=== PATIENT | male | born 1955 | race Caucasian/White ===

== ENCOUNTER → 2017-02-26 | Outpatient (CLI) | payer OTHER ==
--- NOTE | 2017-02-26 10:53 | REP ---
Chest x-ray: Two views. History: Hypertension. Comparison chest x-ray January 24, 2014. Findings: The lungs remain well inflated. There are calcified granulomatous changes in the left lower lobe and left hilus unchanged from prior study. Old healed rib fractures are noted on the right. Lung castelan are otherwise clear. Pleural angles are sharp. Cardiomediastinal silhouette is unremarkable. No other bony abnormality is seen. Impression: No active disease. Signed by Buddy Rivera MD 02/26/2017 11:15 A
[2017-02-26 11:15] LABS: MEAN CORPUSCULAR HEMOGLOBIN 31.6 pg (27.0-33.0); MEAN CORPUSCULAR HGB CONC 33.6 g/dl (32.0-36.5); MEAN CORPUSCULAR VOLUME 94.2 fl (80.0-96.0); PLATELET COUNT, AUTOMATED 199 10^3/uL (150-450); RED CELL DISTRIBUTION WIDTH 13.2 % (11.5-14.5); WHITE BLOOD COUNT 6.3 10^3/uL (4.0-10.0)
[2017-02-26 11:48] LABS: ERYTHROCYTE SEDIMENTATION RATE 25 mm/hr (0-20)
[2017-02-26 11:52] LABS: ALBUMIN 3.7 GM/DL (3.2-5.2); ALBUMIN/GLOBULIN RATIO 1.06 (1.00-1.93); ALKALINE PHOSPHATASE 70 U/L (45-117); ALT/SGPT 30 U/L (12-78); ANION GAP 7 MEQ/L (8-16); AST/SGOT 24 U/L (7-37); BILIRUBIN,TOTAL 1.5 MG/DL (0.2-1.0); BLOOD UREA NITROGEN 12 MG/DL (7-18); CALCIUM LEVEL 8.5 MG/DL (8.5-10.1); CARBON DIOXIDE LEVEL 27 MEQ/L (21-32); CHLORIDE LEVEL 107 MEQ/L (98-107); CHOLESTEROL LEVEL 163 MG/DL (<200); CREATININE FOR GFR 0.96 MG/DL (0.70-1.30); GLOMERULAR FILTRATION RATE > 60.0 (>56); GLUCOSE, FASTING 83 MG/DL (70-105); POTASSIUM SERUM 4.8 MEQ/L (3.5-5.1); SODIUM LEVEL 141 MEQ/L (136-145); TOTAL PROTEIN 7.2 GM/DL (6.4-8.2); TRIGLYCERIDES LEVEL 55 MG/DL (<150)
--- NOTE | 2017-02-26 13:22 | ECGEPIP ---
Stationary ECG Study [facility] Test Date: 2017-02-26 Pat Name: WILFRIDO CARUSO Department: Room: - Gender: M Inspection Engineer: LOU : 1955 Requested By: Hiro Cast Order Number: [id number] Reading MD: Hollie Larson Measurements Intervals [place] Rate: 82 P: 47 [place]: 131 QRS: 64 QRSD: 93 T: 50 QT: 364 QTc: 426 Interpretive Statements SINUS RHYTHM NORMAL STABLE C/W 12/24/11 Electronically Signed On 02-26-2017 13:22:39 EST by Hollie Larson
== END ==
LOC: M LAB 09:48
PROVIDERS: ATTEND Family Medicine
DX: I10 Essential (primary) hypertension (principal); D64.9 Anemia, unspecified; R53.83 Other fatigue; J44.9 Chronic obstructive pulmonary disease, unspecified

== ENCOUNTER → 2017-06-06 | Outpatient (CLI) | payer OTHER ==
[2017-06-06 17:18] LABS: BASO # 0.1 10^3/uL (0.0-0.2); BASO % 0.6 % (0.0-1.0); EOS # 0.1 10^3/uL (0.0-0.50); EOS % 1.4 % (0.0-3.0); HEMATOCRIT 45.2 % (42.0-52.0); HEMOGLOBIN 14.8 g/dl (14.0-18.0); IMMATURE GRANULOCYTE % 0.1 % (0-3.0); LYMPH # 1.9 10^3/uL (1.5-4.5); MEAN CORPUSCULAR HEMOGLOBIN 31.2 pg (27.0-33.0); MEAN CORPUSCULAR HGB CONC 32.7 g/dl (32.0-36.5); MEAN CORPUSCULAR VOLUME 95.2 fl (80.0-96.0); MONO # 0.7 10^3/uL (0.0-0.8); MONO % 8.5 % (0.0-5.0); NEUTROPHILS # 5.2 10^3/uL (1.8-7.7); NEUTROPHILS % 65.4 % (36.0-66.0); PLATELET COUNT, AUTOMATED 250 10^3/uL (150-450); RED BLOOD COUNT 4.75 10^6/uL (4.30-6.10); RED CELL DISTRIBUTION WIDTH 12.8 % (11.5-14.5); WHITE BLOOD COUNT 7.9 10^3/uL (4.0-10.0)
[2017-06-06 17:38] LABS: ALBUMIN 3.9 GM/DL (3.2-5.2); ALBUMIN/GLOBULIN RATIO 1.26 (1.00-1.93); ALKALINE PHOSPHATASE 59 U/L (45-117); ALT/SGPT 18 U/L (12-78); ANION GAP 6 MEQ/L (8-16); AST/SGOT 11 U/L (7-37); BILIRUBIN,DIRECT 0.3 MG/DL (0.0-0.2); BILIRUBIN,TOTAL 1.5 MG/DL (0.2-1.0); BLOOD UREA NITROGEN 18 MG/DL (7-18); CARBON DIOXIDE LEVEL 29 MEQ/L (21-32); CHLORIDE LEVEL 107 MEQ/L (98-107); CREATININE FOR GFR 0.96 MG/DL (0.70-1.30); GLOMERULAR FILTRATION RATE > 60.0 (>56); GLUCOSE, FASTING 74 MG/DL (70-100); PHOSPHORUS LEVEL 3.4 MG/DL (2.5-4.9); SODIUM LEVEL 142 MEQ/L (136-145)
== END ==
LOC: M WUC 09:39
DX: M54.5 Low back pain (principal); R31.9 Hematuria, unspecified

== ENCOUNTER 2019-02-28 19:13 | Observation (INO) | payer OTHER ==
[~2019-02-28] VITALS: Ht 167.6 cm; Wt 87.1 kg
[2019-02-28] MEDS ORDERED: CEPH500T PO (19:33)
[2019-02-28] MEDS ORDERED: ATEN25TA PO (19:33)
[2019-02-28 20:27] LABS: BASO # 0.1 10^3/uL (0.0-0.2); BASO % 0.6 % (0.0-1.0); EOS # 0.2 10^3/uL (0.0-0.5); EOS % 1.8 % (0.0-3.0); HEMATOCRIT 42.1 % (42.0-52.0); HEMOGLOBIN 14.1 g/dl (13.5-17.5); LYMPH # 2.6 10^3/uL (1.5-5.0); LYMPH % 23.6 % (24.0-44.0); MEAN CORPUSCULAR HEMOGLOBIN 31.8 pg (27.0-33.0); MEAN CORPUSCULAR HGB CONC 33.5 g/dl (32.0-36.5); MONO # 0.9 10^3/uL (0.0-0.8); MONO % 8.7 % (0.0-5.0); PLATELET COUNT, AUTOMATED 239 10^3/uL (150-450); RED BLOOD COUNT 4.43 10^6/uL (4.30-6.10); WHITE BLOOD COUNT 10.8 10^3/uL (4.0-10.0)
[2019-02-28 20:56] LABS: BLOOD UREA NITROGEN 15 MG/DL (7-18); CALCIUM LEVEL 8.8 MG/DL (8.8-10.2); CARBON DIOXIDE LEVEL 29 MEQ/L (21-32); CHLORIDE LEVEL 108 MEQ/L (98-107); CK-MB VALUE MASS < 1.0 NG/ML (<3.6); CPK CREATINE PHOSPHOKINASE 99 U/L (39-308); CREATININE FOR GFR 0.98 MG/DL (0.70-1.30); GLOMERULAR FILTRATION RATE > 60.0 (>49); GLUCOSE, FASTING 104 MG/DL (70-100); MB/CK RELATIVE INDEX 1.01 (< OR =4); POTASSIUM SERUM 4.2 MEQ/L (3.5-5.1); SODIUM LEVEL 143 MEQ/L (136-145); TROPONIN I < 0.02 NG/ML (< 0.10)
[2019-02-28] MEDS ORDERED: LORazepam 2 MG/ML VIAL (J2060) IV STA (21:01)
[2019-02-28] MEDS ORDERED: KETOROLAC 30 MG/ML VIAL (J1885) IV ONE (21:15)
[2019-02-28 21:21] LABS: ALBUMIN 3.5 GM/DL (3.2-5.2); ALT/SGPT 21 U/L (12-78); BILIRUBIN,DIRECT 0.2 MG/DL (0.0-0.2); LIPASE 70 U/L (73-393); TOTAL PROTEIN 6.9 GM/DL (6.4-8.2)
[2019-02-28] MEDS ORDERED: ISOVUE-370 76% 100ML VIAL (Q9967) As Ordered ONE (21:50)
--- NOTE | 2019-02-28 23:10 | REPVR ---
PROCEDURE INFORMATION: Exam: CT Angiography Chest With Contrast Exam date and time: 02/28/2019 10:13 PM Age: 63 years old Clinical history: Chest pain; Additional info: R/O pe TECHNIQUE: Imaging protocol: Computed tomographic angiography of the chest with intravenous contrast. 3D rendering: MIP reconstructed images were created and reviewed. Radiation optimization: All CT scans at this facility use at least one of these dose optimization techniques: automated exposure control; mA and/or kV adjustment per patient size (includes targeted exams where dose is matched to clinical indication); or iterative reconstruction. Contrast material: ISOVUE 370; Contrast volume: 75 ml; Contrast route: IV; COMPARISON: CR Abdomen,Flat Upright,PA CHEST 02/28/2019 9:06 PM FINDINGS: Pulmonary arteries: Small pulmonary embolus in the posterior right lower lobe. No central pulmonary embolism is seen. Pulmonary arteries are mildly enlarged. Aorta: Unremarkable. No aortic aneurysm. No aortic dissection. Lungs: There is an 8mm noncalcified mass in the lower trachea. Airways are otherwise clear. Mild bibasal atelectasis. Lungs are otherwise clear. Pleural space: Unremarkable. No pneumothorax. No pleural effusion. Heart: Mild cardiomegaly. Mediastinum: Unremarkable. Lymph nodes: Unremarkable. No enlarged lymph nodes. Bones/joints: Unremarkable. No acute fracture. Soft tissues: Unremarkable. IMPRESSION: 1. Small right lower lobe embolus. Mild pulmonary artery enlargement. 2. Indeterminate nodule in the trachea. Finding may be inspissated secretions but a polyp or other mass cannot be excluded. Electronically signed by: Jason Chan On 02/28/2019 23:10:16 PM
[2019-03-01 00:02] LABS: CK-MB VALUE MASS < 1.0 NG/ML (<3.6); CPK CREATINE PHOSPHOKINASE 75 U/L (39-308); MB/CK RELATIVE INDEX 1.33 (< OR =4); TROPONIN I < 0.02 NG/ML (< 0.10)
--- NOTE | 2019-03-01 01:05 | HPEPDOC ---
[facility] Medical History & Physical Date of Admission Mar 01, 2019 Date of Service: Mar 01, 2019 Primary Care Physician: Hiro Espinoza Attending Physician: ABRAHAM DE LUNA MD History and Physical TIME OF SERVICE: 3:40 AM CHIEF COMPLAINT: Chest pain HISTORY OF PRESENT ILLNESS: This is a 63-year-old, male who presented with complaints of new onset 7 out of 10 in severity, cramping left-sided chest pain. He came to the hospital about 6 hours after the pain initially started. He denied having associated fevers, chills, nausea or vomiting. At the time of my exam, the pain had completely resolved after he received Toradol. REVIEW OF SYSTEMS: 12 point review of systems negative except as listed in HPI PAST MEDICAL/ SURGICAL HISTORY: History of bladder cancer History of prostate cancer SOCIAL HISTORY: Quit smoking FAMILY HISTORY: Father developed CAD in his 80s ALLERGIES: Please see below. HOME MEDICATIONS: Please see below. PHYSICAL EXAMINATION: VITAL SIGNS: Please see below. GENERAL APPEARANCE:, Well-nourished, well-developed, not in apparent distress HEENT: Normocephalic, atraumatic. Mucous members moist and pink CARDIOVASCULAR:. Regular rate and rhythm no murmurs, rubs or gallops. Left sided chest pain is not reproducible with palpation LUNGS: Clear to auscultation bilaterally on room air MUSCULOSKELETAL: Range of motion is intact in all 4 extremities NEUROLOGICAL: Cranial nerves II to 12 are grossly intact. Speech is not dysarthric PSYCHIATRIC: Asleep but arousable vocal stimuli, able to understand and follow commands LABORATORY DATA: See below. IMAGING: CT chest " IMPRESSION: 1. Small right lower lobe embolus. Mild pulmonary artery enlargement. 2. Indeterminate nodule in the trachea. Finding may be inspissated secretions but a polyp or other mass cannot be excluded. X-ray abdomen report pending ASSESSMENT: Mr. Zepeda is a 63-year-old male with a past history of prostate and bladder cancer will be admitted for evaluation of chest pain and abnormal CT chest findings PLAN: 1 Chest pain -resolved Cause to be determined Discussion with ER provider the EKG showed normal sinus rhythm with nonspecific ST-T wave changes Plan: Admit to medical floor/follow-up serial troponins, repeat EKG lipid panel and A1c /NSAIDs when necessary for chest pain / follow-up report from x-ray of the abdomen 2. Small PE. Seen in CT of the chest. Plan: Unlikely to need treatment because his peripheral/the day time team can consult pulmonology to confirm that he doesn't need anticoagulation 3. Abnormal nodule in trachea Plan:the day time team consult pulmonology to determine if needs bronchoscopy DVT prophylaxis with SCDs. Disposition likely home after less than 2 midnight stay Vital Signs Vital Signs Date Time Temp Pulse Resp B/P (MAP) Pulse Ox O2 Delivery O2 Flow Rate FiO2 03/01/19 00:45 70 18 140/88 (105) 97 Room Air 02/28/19 19:14 97.2 Laboratory Data Labs 24H Laboratory Tests 2 02/28/19 20:07: Immature Granulocyte % (Auto) 0.3, Neutrophils (%) (Auto) 65.0, Lymphocytes (%) (Auto) 23.6L, Monocytes (%) (Auto) 8.7H, Eosinophils (%) (Auto) 1.8, Basophils (%) (Auto) 0.6, Neutrophils # (Auto) 7.0, Lymphocytes # (Auto) 2.6, Monocytes # (Auto) 0.9H, Eosinophils # (Auto) 0.2, Basophils # (Auto) 0.1, Nucleated Red Blood Cells % (auto) 0.0, Anion Gap 6L, Glomerular Filtration Rate > 60.0, Calcium Level 8.8, Total Bilirubin 1.0, Direct Bilirubin 0.2, Aspartate Amino Transf (AST/SGOT) 11, Alanine Aminotransferase (ALT/SGPT) 21, Alkaline Phosphatase 63, Total Creatine Kinase 99, Creatine Kinase MB < 1.0, Creatine Kinase MB Relative Index 1.01, Troponin I < 0.02, Total Protein 6.9, Albumin 3.5, Albumin/Globulin Ratio 1.03, Lipase 70L 02/28/19 23:22: Total Creatine Kinase 75, Creatine Kinase MB < 1.0, Creatine Kinase MB Relative Index 1.33, Troponin I < 0.02 CBC/BMP Laboratory Tests 02/28/19 20:07 Home Medications Scheduled Atenolol (Atenolol) 25 Mg Tablet, 25 MG PO DAILY Atorvastatin Calcium (Atorvastatin Calcium) 20 Mg Tablet, 20 MG PO DAILY Scheduled PRN Ibuprofen (Ibuprofen) 200 Mg Tablet, 400 MG PO Q6H PRN for HEADACHE OR PAIN Sildenafil Citrate (Viagra) 100 Mg Tablet, 100 MG PO ASDIRECTED PRN for ERECTILE DYSFUNCTION Allergies Coded Allergies: No Known Allergies (Verified , 12/11/10) A-FIB/CHADSVASC A-FIB History Current/History of A-Fib/PAF?: No Current PO Anticoag Therapy: No ABRAHAM DE LUNA MD Mar 01, 2019 01:05
[2019-03-01] MEDS ORDERED: IBUP-1764 PO (01:19)
[2019-03-01] MEDS ORDERED: VIAG100T PO (01:19)
[2019-03-01] MEDS ORDERED: CEPH500C PO (01:19)
[2019-03-01] MEDS ORDERED: ATEN25TA PO (01:19)
[2019-03-01 02:00] VITALS: BP 169/90
[2019-03-01] MEDS ORDERED: KETOROLAC TROMETHAMINE 10 MG TAB PO PRN (04:00)
[2019-03-01 06:00] VITALS: BP 135/80
[2019-03-01 07:21] LABS: TROPONIN I < 0.02 NG/ML (< 0.10)
[2019-03-01] MEDS ORDERED: RIVAROXABAN 15 MG TAB (XARELTO) PO SCH (08:00)
--- NOTE | 2019-03-01 08:02 | REP ---
Clinical: Abdominal pain. Technique: Upright view of the chest with supine and upright views of the abdomen and pelvis. Findings: Lung castelan demonstrate chronic changes including calcified granuloma suggesting prior granulomatous disease. Subtle superimposed infrahilar atelectasis suspected. Old healed rib fractures identified. Supine and upright views of the abdomen and pelvis demonstrate relatively nonspecific bowel gas pattern. Moderate fecal stasis. No organomegaly. No significant abnormal calcifications. Skeletal structures are intact. Impression: Chronic changes. Basilar atelectasis. Nonspecific bowel gas pattern. Electronically Signed by Tomas Espana MD 03/01/2019 07:54 A
[2019-03-01 08:27] LABS: CHOLESTEROL LEVEL 158 MG/DL (<200); CHOLESTEROL RISK RATIO 2.925 (<5); HDL CHOLESTEROL 54 MG/DL (>40); LDL CHOLESTEROL 86 MG/DL (<100); NON-HDL-C 104 MG/DL; TRIGLYCERIDES LEVEL 89 MG/DL (<150)
[2019-03-01] MEDS ORDERED: ATENOLOL 25 MG TAB PO SCH (09:00)
[2019-03-01] MEDS ORDERED: ASPIRIN 81 MG ENTERIC TAB PO SCH (09:00)
[2019-03-01] MEDS ORDERED: ATORVASTATIN 20 MG TAB PO SCH (09:00)
[2019-03-01 10:21] LABS: HEMOGLOBIN A1c 5.5 %
[2019-03-01 11:14] VITALS: BP 146/87
--- NOTE | 2019-03-01 11:20 | CR ---
DATE OF CONSULTATION: 03/01/2019 ATTENDING PHYSICIAN: Dr. Cardona REASON FOR CONSULTATION: Abnormal CT scan. HISTORY OF PRESENT ILLNESS: Mr. eZpeda is a delightful pleasant 63-year-old gentleman who is a reformed tobacco abuser quitting 8 years ago when he found out he had bladder cancer. At that point in time, it was felt to be semi-invasive. He had a completely cystectomy, prostatectomy and creation of a neobladder. He has been cancer free since. He presented to the emergency room (ER) yesterday with left sided chest discomfort. It was fairly acute in onset and occurred at rest. It was semi-pleuritic in nature. The pain was completely relieved with Toradol. CT angiogram done at the time raised the question of a small right lower lobe embolus. Cardiac work up to date is unremarkable. He has not had a D-Dimer or ultrasound Dopplers of the lower extremities yet. There is a question on CT of an intratracheal abnormality, polyp versus retained secretions, and I am asked now to comment further. He denies any recent illness. No fevers or chills. No cough. No shortness of breath. Today feels completely back to his usual baseline. ALLERGIES: None. MEDICATIONS AT HOME: - atenolol - recent course of Keflex PAST MEDICAL HISTORY: Significant for his bladder and prostate cancer status post prostatectomy/cystectomy with creation of neobladder. FAMILY HISTORY: Father had coronary artery disease in his 80s. SOCIAL HISTORY: He quit tobacco as outlined above. Social alcohol at best. 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 Lives at home with a supportive spouse. REVIEW OF SYSTEMS: As per history of present illness (HPI), otherwise: CONSTITUTIONAL: Negative for any fevers or chills. HEENT: Unremarkable for double or blurry vision. PULMONARY: As per the history of present illness. CARDIAC: Unremarkable for angina. GASTROINTESTINAL (GI): Unremarkable for recent nausea or vomiting. GENITOURINARY (): Significant as outlined above. ENDOCRINE: Unremarkable for diabetes or thyroid disease. HEMATOLOGIC: Unremarkable for bruising or bleeding. NEUROLOGIC: Unremarkable for seizure or strokes. DERMATOLOGIC: Unremarkable for rash or psoriasis. MUSCULOSKELETAL: Unremarkable for any new arthralgias or myalgias. ALLERGIC/IMMUNOLOGIC: unremarkable. PSYCHIATRIC: Unremarkable. PHYSICAL EXAMINATION: Reveals a pleasant, well nourished, well developed gentleman in no distress. Blood pressure 130/76, heart rate 72 and regular, respiratory rate 14 to 16 and unlabored. He is afebrile. HEENT: Otherwise normocephalic, atraumatic. Pupils reactive. NECK: Reasonably supple. Trachea is in the midline. Mucous membranes of nose and mouth moist. CHEST: Clear to auscultation. expansion symmetric. No significant focal adventitious breath sounds are identified. Tactile fremitus palpable throughout. CARDIAC EXAM: Regular with no gallop. Peripheral pulses palpable. No murmur. No edema. ABDOMEN: Soft. Nontender. Active bowel sounds. No convincing organomegaly or masses. EXTREMITIES: Without cyanosis or clubbing. NEUROLOGIC: He is awake, alert and appropriate. PSYCH: Normal mood and affect. Pulse oximetry 95% on room air. CT as outlined above. There may be a subtle area of abnormality at the extreme right base which may just be poor filling, but cannot exclude clot. He clearly has some type of density in the trachea. No clear cut adherence to the tracheal wall and certainly still may be secretions. IMPRESSION: 1. Abnormal CT scan with intratracheal abnormality and question right lower lobe embolus. 2. Chest pain, resolved. 3. Previous history of tobacco use. 4. History of bladder and prostate cancer. RECOMMENDATIONS: He has been empirically started on Xarelto. Therefore, we cannot perform bronchoscopy. If there is a question of a clot, then certainly this cannot be interrupted for at least 3-4 weeks. He has absolutely no cough whatsoever which would make an intratracheal lesion somewhat unlikely as those patients generally present with cough, abnormal breath sounds and/or stridor with shortness of breath. To complete the remainder of his workup regarding embolic events, I will get lower extremity Dopplers as well as a D-Dimer. I plan on seeing him in the office in 3-4 weeks with a repeat CT angiogram. If there is no evidence of clot on that scan and his lower extremity Dopplers are negative, then at that point we would discontinue his Xarelto. Certainly, if he has persistent endotracheal abnormality, at that point we would proceed with bronchoscopy. In the interim, I am in agreement with his discharge plans as outlined by the primary service. Further recommendations will be made in the progress record as new information becomes available. TERRI
--- NOTE | 2019-03-01 13:13 | REP ---
Bilateral lower extremity Duplex Doppler venous ultrasound: Real time compression and duplex Doppler interrogation of the bilateral lower extremity deep venous system is performed. Bilaterally, the common femoral, superficial femoral and popliteal veins are fully compressible with transducer pressure and demonstrate normal spontaneous and phasic flow, without evidence of deep venous thrombosis. Impression: No evidence of deep venous thrombosis of the bilateral lower extremity femoral popliteal venous system. Electronically Signed by Juan Carlos Moreno MD 03/01/2019 01:04 P
[2019-03-01 14:00] VITALS: BP 145/87
[2019-03-01] MEDS ORDERED: ATOR1TAB21 PO (14:36)
--- NOTE | 2019-03-01 15:36 | ECGEPIP ---
[facility] [place] - ED Test Date: 2019-02-28 Pat Name: WILFRIDO CARUSO Department: Room: X3448-47 Gender: Male Slot Floor Person: derrell : 1955 Requested By: Angelito Spicer Order Number: [id number] Reading MD: Albertina Gonzalez Measurements Intervals [place] Rate: 74 P: 42 [place]: 139 QRS: 51 QRSD: 94 T: -1 QT: 372 QTc: 414 Interpretive Statements SINUS RHYTHM NONSPECIFIC ST & T-WAVE ABNORMALITY DECREASED RATE 02/26/17 Electronically Signed on 03-01-2019 15:36:28 EST by Albertina Gonzalez
--- NOTE | 2019-03-01 15:39 | ECGEPIP ---
[facility] - ED Test Date: 2019-02-28 Pat Name: WILFRIDO CARUSO Department: Room: [place] [address] Gender: Male Metalworking Specialist: MERYL : 1955 Requested By: AMARILIS Jean-Baptiste Order Number: [id number] Reading MD: Albertina Gonzalez Measurements Intervals [place] Rate: 69 P: 30 GA: 139 QRS: 61 QRSD: 96 T: 1 QT: 390 QTc: 420 Interpretive Statements SINUS RHYTHM NONSPECIFIC T-WAVE ABNORMALITY SIMILAR 02/28/19 Electronically Signed on 03-01-2019 15:38:57 EST by Albertina Gonzalez
--- NOTE | 2019-03-01 17:35 | ECGEPIP ---
[facility] Test Date: 2019-03-01 Pat Name: WILFRIDO CARUSO Department: Room: [place] [address] Gender: Male Safety Professional: JAKE : 1955 Requested By: ABRAHAM DE LUNA Order Number: [id number] Reading MD: Louie Almendarez Measurements Intervals [place] Rate: 71 P: 31 AR: 138 QRS: 48 QRSD: 88 T: 22 QT: 377 QTc: 412 Interpretive Statements SINUS RHYTHM NONSPECIFIC ST & T-WAVE ABNORMALITY similar to tracing done 02-28-19 Electronically Signed on 03-01-2019 17:35:26 EST by Louie Almendarez
--- NOTE | 2019-03-01 18:47 | DS.PDOC ---
Discharge Summary General Date of Admission Feb 28, 2019 at 19:14 Date of Discharge 01/30/19 Discharge Summary PROCEDURES PERFORMED DURING STAY: [None]. ADMITTING DIAGNOSES: Chest pain Small PE Abnormal nodule in trachea DISCHARGE DIAGNOSES: Chest pain Small PE Abnormal nodule in trachea COMPLICATIONS/CHIEF COMPLAINT: Abnormal Ct Scan Of Lung. HISTORY OF PRESENT ILLNESS: Mr. Zepeda is a delightful pleasant 63-year-old gentleman who is a reformed tobacco abuser quitting 8 years ago when he found out he had bladder cancer. At that point in time, it was felt to be semi-invasive. He had a completely cystectomy, prostatectomy and creation of a neobladder. He has been cancer free since. He presented to the emergency room (ER) yesterday with left sided chest discomfort. It was fairly acute in onset and occurred at rest. It was semi-pleuritic in nature. The pain was completely relieved with Toradol. CT angiogram done at the time raised the question of a small right lower lobe embolus. Cardiac work up to date is unremarkable. He has not had a D-Dimer or ultrasound Dopplers of the lower extremities yet. HOSPITAL COURSE: During hospital stay the following workup was done, d-dimer c priyanka back 550, Doppler ultrasound of lower extremities was negative. Troponin series negative Ignition Mechanic Dr Giron recommended to discontinue anticoagulation with Xarelto which was started earlier. Follow-up with Dr Giron in 2-[address] of chest. Also patient was found to have small 0.8 cm lesion in his trachea. Follow-up with pebble mill operator in 2-3 weeks for bronchoscopy. Recommended to discuss with oncologist continuation of anticoagulation in the light of previous malignancy. DISCHARGE MEDICATIONS: Please see below. ALLERGIES: Please see below. PHYSICAL EXAMINATION ON DISCHARGE: Objective:VITAL SIGNS: Please see below. GENERAL APPEARANCE: Well-nourished, well-developed, not in apparent distress HEENT: Normocephalic, atraumatic. Mucous members moist and pink CARDIOVASCULAR: Regular rate and rhythm. No murmurs, rubs or gallops. Radial pulses are intact. There is no lower extremity edema LUNGS: . Diminished lung sounds, ABDOMEN: Bowel sounds are hypoactive. Abdomen is soft and nontender. MUSCULOSKELETAL: Range of motion is intact in all 4 extremities NEUROLOGICAL: Cranial nerves II-12 are grossly intact. Speech is not dysarthric IMAGING: PROCEDURE INFORMATION: Exam: CT Angiography Chest With Contrast Exam date and time: 02/28/2019 10:13 PM Age: 63 years old Clinical history: Chest pain; Additional info: R/O pe TECHNIQUE: Imaging protocol: Computed tomographic angiography of the chest with intravenous contrast. 3D rendering: MIP reconstructed images were created and reviewed. Radiation optimization: All CT scans at this facility use at least one of these dose optimization techniques: automated exposure control; mA and/or kV adjustment per patient size (includes targeted exams where dose is matched to clinical indication); or iterative reconstruction. Contrast material: ISOVUE 370; Contrast volume: 75 ml; Contrast route: IV; COMPARISON: CR Abdomen,Flat Upright,PA CHEST 02/28/2019 9:06 PM FINDINGS: Pulmonary arteries: Small pulmonary embolus in the posterior right lower lobe. No central pulmonary embolism is seen. Pulmonary arteries are mildly enlarged. Aorta: Unremarkable. No aortic aneurysm. No aortic dissection. Lungs: There is an 8mm noncalcified mass in the lower trachea. Airways are otherwise clear. Mild bibasal atelectasis. Lungs are otherwise clear. Pleural space: Unremarkable. No pneumothorax. No pleural effusion. Heart: Mild cardiomegaly. Mediastinum: Unremarkable. Lymph nodes: Unremarkable. No enlarged lymph nodes. Bones/joints: Unremarkable. No acute fracture. Soft tissues: Unremarkable. IMPRESSION: 1. Small right lower lobe embolus. Mild pulmonary artery enlargement. 2. Indeterminate nodule in the trachea. Finding may be inspissated secretions but a polyp or other mass cannot be excluded. PROGNOSIS: ACTIVITY: [As tolerated]. DIET: Cardiac DISCHARGE PLAN: Follow-up with pebble mill operator, executive community planning and discuss with oncologist continuation of anticoagulation DISPOSITION: 01 Home, Self-Care. DISCHARGE CONDITION: [Stable]. TIME SPENT ON DISCHARGE: Greater than 20 minutes. Vital Signs/I&Os Vital Signs Date Time Temp Pulse Resp B/P (MAP) Pulse Ox O2 Delivery O2 Flow Rate FiO2 03/01/19 14:00 98.3 76 18 145/87 (106) 96 Room Air I&O- Last 24 Hours up to 6 AM 03/01/19 06:00 Intake Total 150 ml Output Total 0 ml Balance 150 ml Laboratory Data Labs 24H Laboratory Tests 2 02/28/19 20:07: Immature Granulocyte % (Auto) 0.3, Neutrophils (%) (Auto) 65.0, Lymphocytes (%) (Auto) 23.6L, Monocytes (%) (Auto) 8.7H, Eosinophils (%) (Auto) 1.8, Basophils (%) (Auto) 0.6, Neutrophils # (Auto) 7.0, Lymphocytes # (Auto) 2.6, Monocytes # (Auto) 0.9H, Eosinophils # (Auto) 0.2, Basophils # (Auto) 0.1, Nucleated Red Blood Cells % (auto) 0.0, Anion Gap 6L, Glomerular Filtration Rate > 60.0, Calcium Level 8.8, Total Bilirubin 1.0, Direct Bilirubin 0.2, Aspartate Amino Transf (AST/SGOT) 11, Alanine Aminotransferase (ALT/SGPT) 21, Alkaline [place] sphatase 63, Total Creatine Kinase 99, Creatine Kinase MB < 1.0, Creatine Kinase MB Relative Index 1.01, Troponin I < 0.02, Total Protein 6.9, Albumin 3.5, Albumin/Globulin Ratio 1.03, Lipase 70L 02/28/19 23:22: Total Creatine Kinase 75, Creatine Kinase MB < 1.0, Creatine Kinase MB Relative Index 1.33, Troponin I < 0.02 03/01/19 06:25: Estimated Mean Plasma Glucose 111H, Hemoglobin A1c 5.5 03/01/19 06:27: Troponin I < 0.02, Triglycerides Level 89, Total Cholesterol 158, LDL Cholesterol 86, Non-HDL Cholesterol (LDL + VLDL) 104, Total HDL Cholesterol 54, Cholesterol/HDL Ratio 2.925 03/01/19 11:07: D-Dimer, Quantitative 550.79H CBC/BMP Laboratory Tests 02/28/19 20:07 Discharge Medications Scheduled Atenolol (Atenolol) 25 Mg Tablet, 25 MG PO DAILY, (Reported) Atorvastatin Calcium (Atorvastatin Calcium) 20 Mg Tablet, 20 MG PO DAILY Scheduled PRN Ibuprofen (Ibuprofen) 200 Mg Tablet, 400 MG PO Q6H PRN for HEADACHE OR PAIN, (Reported) Sildenafil Citrate (Viagra) 100 Mg Tablet, 100 MG PO ASDIRECTED PRN for ERECTILE DYSFUNCTION, (Reported) Allergies Coded Allergies: No Known Allergies (Verified , 12/11/10) ENZO CARDOSO DO Mar 01, 2019 18:47
--- NOTE | 2019-03-02 07:26 | ECHO ---
DATE OF PROCEDURE: 03/01/2019 DATE OF : 1955 AGE: 63 PATIENT LOCATION: Room 4217 REASON FOR STUDY: Chest pain. REFERRING PROVIDER: Dr. Goldy Cardona 2-D MEASUREMENTS: IVS: 1.2 cm LV: 5.5 cm LVPW: 1.2 cm LA: 4.2 cm Aorta: 3.6 cm IVC: 1.3 cm DOPPLER MEASUREMENTS: Peak velocity across the aortic valve: 1.9 m/s Peak velocity across the LVOT: 1.4 m/s Mitral E: 0.77 Mitral A: 0.92 Ratio: 0.8 Maximum tricuspid valve velocity: 2.7 m/s 2-D COMMENTS: 1. Normal left ventricular size with a borderline enlarged left ventricle, but with a normal global left ventricular systolic function. The estimated left ventricular systolic ejection fraction is 60-65%. 2. Mildly enlarged left atrium. The right atrium appeared to be normal in size as well as the right ventricle. 3. The atrial septum appeared to be normal without evidence of defect or shunt. 4. Normal aortic root. 5. Trace pericardial effusion was noted, no evidence of cardiac tamponade. 6. Mildly calcified aortic valve with minimally restricted leaflet motion. Mildly calcified mitral annulus with normal anterior mitral valve leaflet motion. Normal tricuspid valve and pulmonic valve. The proximal pulmonary artery branches were not well visualized. 7. The inferior vena cava was normal in size, central venous pressure is most likely normal. DOPPLER: Detects moderate aortic radiation, trace to mild mitral regurgitation, mild tricuspid regurgitation. The calculated pulmonary artery systolic pressure varies between 30-40 mmHg. Abnormal relaxation pattern was noted across the mitral valve leaflets as well as the mitral valve annulus consistent with features of grade 1 left ventricular diastolic dysfunction. IMPRESSION: 1. Normal global left ventricular systolic function. There are some features of grade 1 left ventricular diastolic dysfunction manifested by abnormal relaxation. 2. Aortic valve sclerosis with trivial aortic stenosis and moderate aortic regurgitation. The aortic regurgitation jet was eccentric and directed posteriorly toward the anterior mitral valve leaflet. 3. Mitral annulus calcification with mildly enlarged left atrium and trace to mild mitral regurgitation. 4. Mild tricuspid radiation with mild pulmonary hypertension. 5. Trace pericardial effusion was noted, no evidence of cardiac tamponade.
== END 2019-03-01 15:37 | disposition home or self-care (01) ==
LOC: M ED 19:13 → M ED INP 19:14 → M MSPAV 03-01 01:35
PROVIDERS: ADMIT Internal Medicine; ATTEND Internal Medicine
DX: I26.99 Other pulmonary embolism without acute cor pulmonale (principal); J39.8 Other specified diseases of upper respiratory tract; R07.9 Chest pain, unspecified; I11.9 Hypertensive heart disease without heart failure; Z85.51 Personal history of malignant neoplasm of bladder; Z85.46 Personal history of malignant neoplasm of prostate; Z87.891 Personal history of nicotine dependence; Z79.899 Other long term (current) drug therapy; Z79.01 Long term (current) use of anticoagulants
CPT/HCPCS: 36415; 71275; 74021; 80048; 80061; 80076; 82550; 82553; 83036; 83690; 84484; 85025; 85379; 93005; 93041; 93306; 93970; 94760; 96374; 96375; 99285; J1885; J2060; Q9967

== ENCOUNTER → 2019-03-15 | Outpatient (CLI) | payer OTHER ==
[~2019-03-15] MED LIST: ATEN25TA PO; ATOR1TAB21 PO; CEPH500C PO; CEPH500T PO; IBUP-1764 PO; ISOVUE-370 76% 100ML VIAL (Q9967) As Ordered ONE; VIAG100T PO
--- NOTE | 2019-03-15 19:12 | REP ---
HISTORY: Prior CT angio chest 05/01/2018 showed a small right lower lobe pulmonary embolus. Today's examination was obtained to followup. Additionally, a nodule was seen in the trachea, also being followed up today. CONTRAST: 100 mL [id number]. There is excellent visualization of the pulmonary arterial vasculature. The small focal filling defect seen in one of the right lower lobe pulmonary arterials on the prior examination (image #129 and 130) has abated. No abnormal focal filling defects are seen in any of the pulmonary arterials on today's exam. There is no change in the mediastinum or pulmonary renetta. There is no evidence of a mass or adenopathy. The small nodular density seen previously in the trachea is no longer present. There is no change in the imaged upper abdomen or imaged osseous structures. Evaluation of the lung castelan again shows an incidental calcified granuloma in the left lower lobe. There are no new abnormal nodules, masses or opacities. IMPRESSION: 1. No evidence of a PE on today's exam. 2. Resolved small amount of soft tissue density seen in the trachea and consistent with mucoid debris on the prior exam. 3. Other findings as described above. Electronically Signed by Otto Barnard DO 03/16/2019 04:15 P
== END ==
LOC: M RAD 14:49
PROVIDERS: ATTEND Internal Medicine Pulmonary Disease
DX: R91.8 Other nonspecific abnormal finding of lung field (principal)
CPT/HCPCS: 71275; Q9967

== ENCOUNTER → 2019-11-10 | Outpatient (REF) | payer OTHER ==
[~2019-11-10] MED LIST changes: -ISOVUE-370 76% 100ML VIAL (Q9967) As Ordered ONE
[2019-12-31 09:18] LABS: HEMATOCRIT 43.1 % (42.0-52.0); HEMOGLOBIN 14.6 g/dl (13.5-17.5); MEAN CORPUSCULAR HEMOGLOBIN 31.8 pg (27.0-33.0); MEAN CORPUSCULAR HGB CONC 33.9 g/dl (32.0-36.5); MEAN CORPUSCULAR VOLUME 93.9 fl (80.0-96.0); PLATELET COUNT, AUTOMATED 223 10^3/uL (150-450); RED BLOOD COUNT 4.59 10^6/uL (4.30-6.10); WHITE BLOOD COUNT 8.3 10^3/uL (4.0-10.0)
[2020-01-03 16:47] LABS: ALBUMIN 3.9 GM/DL (3.2-5.2); ALT/SGPT 32 U/L (12-78); BILIRUBIN,TOTAL 2.5 MG/DL (0.2-1.0); BLOOD UREA NITROGEN 18 MG/DL (7-18); CALCIUM LEVEL 8.8 MG/DL (8.8-10.2); CARBON DIOXIDE LEVEL 25 MEQ/L (21-32); CHLORIDE LEVEL 112 MEQ/L (98-107); CREATININE FOR GFR 0.96 MG/DL (0.70-1.30); GLOMERULAR FILTRATION RATE > 60.0 (>49); GLUCOSE, FASTING 85 MG/DL (70-100); POTASSIUM SERUM 4.4 MEQ/L (3.5-5.1); SODIUM LEVEL 143 MEQ/L (136-145); TOTAL PROTEIN 6.9 GM/DL (6.4-8.2); VITAMIN B12 LEVEL 252 PG/ML (247-911)
== END ==
LOC: M LAB REF 09:35
PROVIDERS: ATTEND Nurse Practitioner Adult Health
DX: C67.9 Malignant neoplasm of bladder, unspecified (principal)

== ENCOUNTER → 2021-04-25 | Outpatient (REF) | payer OTHER | LOC: M WUC 15:32 | PROVIDERS: ATTEND Physician Assistant | DX: R30.0 Dysuria (principal) ==

== ENCOUNTER → 2021-05-12 | Outpatient (CLI) | payer OTHER ==
[2021-05-12 12:08] LABS: HEMATOCRIT 43.5 % (42.0-52.0); HEMOGLOBIN 14.7 g/dl (13.5-17.5); MEAN CORPUSCULAR HEMOGLOBIN 31.5 pg (27.0-33.0); MEAN CORPUSCULAR HGB CONC 33.8 g/dl (32.0-36.5); MEAN CORPUSCULAR VOLUME 93.3 fl (80.0-96.0); PLATELET COUNT, AUTOMATED 233 10^3/uL (150-450); RED BLOOD COUNT 4.66 10^6/uL (4.30-6.10); WHITE BLOOD COUNT 7.8 10^3/uL (4.0-10.0)
[2021-05-12 12:49] LABS: HEMOGLOBIN A1c 5.4 %
[2021-05-12 13:00] LABS: ALBUMIN 3.6 GM/DL (3.2-5.2); ALT/SGPT 26 U/L (12-78); BILIRUBIN,TOTAL 1.5 MG/DL (0.2-1.0); BLOOD UREA NITROGEN 14 MG/DL (7-18); CALCIUM LEVEL 8.8 MG/DL (8.8-10.2); CARBON DIOXIDE LEVEL 26 MEQ/L (21-32); CHLORIDE LEVEL 107 MEQ/L (98-107); CHOLESTEROL LEVEL 161 MG/DL (<200); CHOLESTEROL RISK RATIO 3.096 (<5); CREATININE FOR GFR 0.95 MG/DL (0.70-1.30); GLOMERULAR FILTRATION RATE > 60.0 (>49); GLUCOSE, FASTING 79 MG/DL (70-100); HDL CHOLESTEROL 52 MG/DL (>40); LDL CHOLESTEROL 76 MG/DL (<100); NON-HDL-C 109 MG/DL; POTASSIUM SERUM 4.5 MEQ/L (3.5-5.1); PROSTATIC SPECIFIC AG MONITOR 0.06 NG/ML (< 4.00); SODIUM LEVEL 140 MEQ/L (136-145); TOTAL PROTEIN 6.7 GM/DL (6.4-8.2); TRIGLYCERIDES LEVEL 164 MG/DL (<150)
[2021-05-12 13:13] LABS: TESTOSTERONE 424 NG/DL (241-827)
== END ==
LOC: M LAB 11:38
PROVIDERS: ATTEND Family Medicine
DX: R53.83 Other fatigue (principal); I10 Essential (primary) hypertension; E03.9 Hypothyroidism, unspecified

== ENCOUNTER → 2021-05-16 | Outpatient (REF) | payer OTHER | LOC: M WUC 15:32 | PROVIDERS: ATTEND Physician Assistant | DX: R30.0 Dysuria (principal) ==

== ENCOUNTER → 2021-06-30 | Outpatient (CLI) | payer OTHER ==
[2021-06-30 17:09] LABS: ALBUMIN 3.9 GM/DL (3.2-5.2); ALT/SGPT 25 U/L (12-78); BILIRUBIN,TOTAL 2.2 MG/DL (0.2-1.0); BLOOD UREA NITROGEN 17 MG/DL (7-18); CALCIUM LEVEL 8.9 MG/DL (8.8-10.2); CARBON DIOXIDE LEVEL 27 MEQ/L (21-32); CHLORIDE LEVEL 108 MEQ/L (98-107); GLOMERULAR FILTRATION RATE > 60.0 (>49); GLUCOSE, FASTING 78 MG/DL (70-100); POTASSIUM SERUM 3.9 MEQ/L (3.5-5.1); SODIUM LEVEL 139 MEQ/L (136-145); TOTAL PROTEIN 7.2 GM/DL (6.4-8.2)
== END ==
LOC: M LAB 16:18
PROVIDERS: ATTEND Urology
DX: Z85.51 Personal history of malignant neoplasm of bladder (principal)

== ENCOUNTER → 2021-08-12 | Outpatient (CLI) | payer OTHER ==
[2021-08-14 15:10] LABS: IgG P18 AB Absent (.); IgG P23 AB Absent (.); IgG P28 AB Absent (.); IgG P30 AB Absent (.); IgG P39 AB Absent (.); IgG P41 AB Absent (.); IgG P45 AB Absent (.); IgG P66 AB Absent (.); IgG P93 AB Absent (.); IgM P23 AB Absent (.); IgM P39 AB Absent (.); IgM P41 AB Absent (.); LYME IgG WB INTERPRETATION Negative (.); LYME IgM WB INTERPRETATION Negative (.)
== END ==
LOC: M LAB 14:14
PROVIDERS: ATTEND Family Medicine
DX: M13.89 Other specified arthritis, multiple sites (principal)

== ENCOUNTER → 2022-02-18 | Outpatient (REF) | payer OTHER | LOC: M LAB REF 15:15 | PROVIDERS: ATTEND Registered Nurse Emergency | DX: R31.0 Gross hematuria (principal) ==

== ENCOUNTER → 2022-04-06 | Outpatient (CLI) | payer OTHER ==
[2022-04-06 13:31] LABS: BLOOD UREA NITROGEN 14 MG/DL (9-23); CALCIUM LEVEL 9.2 MG/DL (8.3-10.6); CARBON DIOXIDE LEVEL 27 MMOL/L (20-31); CHLORIDE LEVEL 106 MMOL/L (98-107); CREATININE FOR GFR 0.94 MG/DL (0.70-1.30); GLOMERULAR FILTRATION RATE > 60.0 (>49); GLUCOSE, FASTING 76 MG/DL (74-106); POTASSIUM SERUM 4.6 MMOL/L (3.5-5.1); SODIUM LEVEL 138 MMOL/L (136-145)
== END ==
LOC: M LAB 12:02
PROVIDERS: ATTEND Physician Assistant
DX: R31.0 Gross hematuria (principal)

== ENCOUNTER 2022-09-14 09:08 | Emergency (ER) | payer OTHER ==
[~2022-09-14] VITALS: Ht 167.6 cm; Wt 83.2 kg
[2022-09-14 09:09] VITALS: TEMP 98
[2022-09-14] MEDS ORDERED: LIDOCAINE 2% 5ML JELLY UROJET TOP ONE (10:25)
[2022-09-14 11:04] LABS: BASO # 0.1 10^3/uL (0.0-0.2); BASO % 0.8 % (0.0-1.0); EOS # 0.1 10^3/uL (0.0-0.5); EOS % 1.4 % (0.0-3.0); HEMATOCRIT 44.7 % (42.0-52.0); HEMOGLOBIN 15.2 g/dl (13.5-17.5); LYMPH # 2.1 10^3/uL (1.5-5.0); LYMPH % 24.3 % (24.0-44.0); MEAN CORPUSCULAR VOLUME 94.1 fl (80.0-96.0); MONO # 0.8 10^3/uL (0.0-0.8); MONO % 9.2 % (2.0-8.0); NEUTROPHILS # 5.6 10^3/uL (1.5-8.5); NEUTROPHILS % 64.1 % (36.0-66.0); PLATELET COUNT, AUTOMATED 271 10^3/uL (150-450); RED BLOOD COUNT 4.75 10^6/uL (4.30-6.10); WHITE BLOOD COUNT 8.7 10^3/uL (4.0-10.0)
[2022-09-14] MEDS ORDERED: ISOVUE-370 76% 100ML VIAL As Ordered ONE (11:11)
[2022-09-14 11:24] LABS: ALBUMIN 3.9 G/DL (3.2-5.2); BILIRUBIN,DIRECT 0.6 MG/DL (<0.4); BILIRUBIN,TOTAL 2.2 MG/DL (0.3-1.2); TOTAL PROTEIN 6.7 G/DL (5.7-8.2)
[2022-09-14] MEDS ORDERED: KETOROLAC 30 MG/ML 1ML VIAL IV ONE (11:55)
[2022-09-14 16:18] VITALS: BP 149/88; O2SAT 97
== END 2022-09-14 16:41 | disposition home or self-care (01) ==
LOC: M ED 09:08
DX: R33.9 Retention of urine, unspecified (principal); R31.0 Gross hematuria; I10 Essential (primary) hypertension; E78.5 Hyperlipidemia, unspecified; C67.9 Malignant neoplasm of bladder, unspecified; Z79.02 Long term (current) use of antithrombotics/antiplatelets; Z79.899 Other long term (current) drug therapy
CPT/HCPCS: 74178; 80047; 80076; 81000; 81015; 85025; 87086; 96374; 99284; J1885; Q9967

== ENCOUNTER 2023-01-07 15:57 | Emergency (ER) | payer OTHER ==
[~2023-01-07] VITALS: Ht 167.6 cm; Wt 81.2 kg
[2023-01-07 16:49] LABS: BASO # 0.1 10^3/uL (0.0-0.2); BASO % 0.8 % (0.0-1.0); EOS # 0.2 10^3/uL (0.0-0.5); HEMATOCRIT 41.7 % (42.0-52.0); HEMOGLOBIN 14.1 g/dl (13.5-17.5); LYMPH # 2.4 10^3/uL (1.5-5.0); LYMPH % 29.8 % (24.0-44.0); MEAN CORPUSCULAR HEMOGLOBIN 31.8 pg (27.0-33.0); MEAN CORPUSCULAR HGB CONC 33.8 g/dl (32.0-36.5); MEAN CORPUSCULAR VOLUME 94.1 fl (80.0-96.0); MONO # 0.7 10^3/uL (0.0-0.8); MONO % 9.1 % (2.0-8.0); NEUTROPHILS # 4.6 10^3/uL (1.5-8.5); PLATELET COUNT, AUTOMATED 244 10^3/uL (150-450); RED BLOOD COUNT 4.43 10^6/uL (4.30-6.10); WHITE BLOOD COUNT 7.9 10^3/uL (4.0-10.0)
[2023-01-07] MEDS ORDERED: ISOVUE-370 76% 100ML VIAL As Ordered ONE (16:57)
[2023-01-07 17:15] LABS: LIPASE 27 U/L (12-53)
[2023-01-07 17:17] LABS: ALBUMIN 3.7 G/DL (3.2-5.2); ALKALINE PHOSPHATASE 60 U/L (46-116); ALT/SGPT 16 U/L (7.0-40); AST/SGOT 12 U/L (<34); BILIRUBIN,DIRECT 0.4 MG/DL (<0.4); BILIRUBIN,TOTAL 1.9 MG/DL (0.3-1.2); CK-MB VALUE MASS < 1.0 NG/ML (<3.6); TOTAL PROTEIN 6.6 G/DL (5.7-8.2)
[2023-01-07 17:18] LABS: THYROID STIMULATING HORMONE 3.465 uIU/ML (0.55-4.78)
[2023-01-07 17:19] LABS: CPK CREATINE PHOSPHOKINASE 55 U/L (46-171); FREE T4 0.93 NG/DL (0.89-1.76); MB/CK RELATIVE INDEX 1.81 (< OR =4)
[2023-01-07 17:21] LABS: INR 0.97; PROTHROMBIN TIME 12.6 SECONDS (12.5-14.5)
[2023-01-07 18:33] LABS: CK-MB VALUE MASS < 1.0 NG/ML (<3.6)
[2023-01-07 18:34] LABS: CPK CREATINE PHOSPHOKINASE 50 U/L (46-171)
[2023-01-07 19:45] VITALS: TEMP 98.1
[2023-01-07 20:16] LABS: CK-MB VALUE MASS < 1.0 NG/ML (<3.6)
[2023-01-07 20:17] LABS: CPK CREATINE PHOSPHOKINASE 51 U/L (46-171); MB/CK RELATIVE INDEX 1.96 (< OR =4)
[2023-01-07 20:30] VITALS: BP 147/91; O2SAT 98
== END 2023-01-07 20:48 | disposition home or self-care (01) ==
LOC: M ED 15:57
DX: R07.9 Chest pain, unspecified (principal); I10 Essential (primary) hypertension; C67.9 Malignant neoplasm of bladder, unspecified; Z86.711 Personal history of pulmonary embolism
CPT/HCPCS: 71045; 71275; 80047; 80076; 82550; 82553; 83690; 84439; 84443; 84484; 85025; 85610; 85730; 93005; 93041; 94760; 99285; Q9967

== ENCOUNTER → 2023-01-19 | Outpatient (CLI) | payer OTHER ==
[2023-01-19 08:19] LABS: HEMATOCRIT 41.8 % (42.0-52.0); MEAN CORPUSCULAR HEMOGLOBIN 31.2 pg (27.0-33.0); MEAN CORPUSCULAR HGB CONC 33.5 g/dl (32.0-36.5); MEAN CORPUSCULAR VOLUME 93.1 fl (80.0-96.0); PLATELET COUNT, AUTOMATED 251 10^3/uL (150-450); RED BLOOD COUNT 4.49 10^6/uL (4.30-6.10)
[2023-01-19 08:44] LABS: PROSTATIC SPECIFIC AG MONITOR 0.06 NG/ML (< 4.00)
[2023-01-19 08:47] LABS: ALBUMIN 3.5 G/DL (3.2-5.2); ALKALINE PHOSPHATASE 57 U/L (46-116); ALT/SGPT 10 U/L (7.0-40); AST/SGOT 14 U/L (<34); BILIRUBIN,TOTAL 1.8 MG/DL (0.3-1.2); BLOOD UREA NITROGEN 17 MG/DL (9-23); CALCIUM LEVEL 8.8 MG/DL (8.3-10.6); CARBON DIOXIDE LEVEL 25 MMOL/L (20-31); CHLORIDE LEVEL 108 MMOL/L (98-107); CHOLESTEROL LEVEL 168 MG/DL (<200); CHOLESTEROL RISK RATIO 3.04 (<5); CREATININE FOR GFR 0.85 MG/DL (0.70-1.30); GLOMERULAR FILTRATION RATE > 60.0 (>49); GLUCOSE, FASTING 86 MG/DL (74-106); HDL CHOLESTEROL 55.2 MG/DL (>40); LDL CHOLESTEROL 98.4 MG/DL (<100); NON-HDL-C 112.8 MG/DL; POTASSIUM SERUM 4.7 MMOL/L (3.5-5.1); SODIUM LEVEL 142 MMOL/L (136-145); TOTAL PROTEIN 6.4 G/DL (5.7-8.2); TRIGLYCERIDES LEVEL 72 MG/DL (<150)
[2023-01-19 08:48] LABS: THYROID STIMULATING HORMONE 2.402 uIU/ML (0.55-4.78)
[2023-01-19 08:49] LABS: TESTOSTERONE 430 NG/DL (241-827)
== END ==
LOC: M EKG 07:12
PROVIDERS: ATTEND Family Medicine
DX: R53.83 Other fatigue (principal); I10 Essential (primary) hypertension; E03.9 Hypothyroidism, unspecified

== ENCOUNTER 2023-05-27 10:15 | Day surgery (SDC) | payer OTHER ==
[~2023-05-27] VITALS: Ht 167.6 cm; Wt 83.5 kg
[2023-05-27] MEDS: NS 1,000 ML IV ONE (10:28)
[2023-05-27 10:52] VITALS: TEMP 97
[2023-05-27 11:08] VITALS: BP 111/66; O2SAT 97
== END 2023-05-27 11:18 | disposition home or self-care (01) ==
LOC: M OPP 10:15
PROVIDERS: ATTEND Surgery
DX: R19.4 Change in bowel habit (principal); K63.5 Polyp of colon; Z85.51 Personal history of malignant neoplasm of bladder; I10 Essential (primary) hypertension; Z79.899 Other long term (current) drug therapy; Z90.79 Acquired absence of other genital organ(s); Z92.21 Personal history of antineoplastic chemotherapy

== ENCOUNTER → 2023-07-02 | Outpatient (REF) | payer OTHER | LOC: M LAB REF 16:33 | PROVIDERS: ATTEND Physician Assistant | DX: R68.83 Chills (without fever) (principal) ==

== ENCOUNTER 2023-07-10 13:30 | Emergency (ER) | payer OTHER, SELFPAY ==
[~2023-07-10] VITALS: Ht 167.6 cm; Wt 82.6 kg
[2023-07-10] MEDS: NS 1,000 ML IV ONE (14:40)
[2023-07-10 14:45] LABS: BASO % 0.3 % (0.0-1.0); EOS % 0.3 % (0.0-3.0); HEMATOCRIT 44.5 % (42.0-52.0); HEMOGLOBIN 15.2 g/dl (13.5-17.5); LYMPH # 0.7 10^3/uL (1.5-5.0); LYMPH % 9.7 % (24.0-44.0); MEAN CORPUSCULAR HEMOGLOBIN 31.8 pg (27.0-33.0); MEAN CORPUSCULAR HGB CONC 34.2 g/dl (32.0-36.5); MEAN CORPUSCULAR VOLUME 93.1 fl (80.0-96.0); MONO # 0.7 10^3/uL (0.0-0.8); MONO % 9.7 % (2.0-8.0); NEUTROPHILS # 5.3 10^3/uL (1.5-8.5); NEUTROPHILS % 79.7 % (36.0-66.0); PLATELET COUNT, AUTOMATED 229 10^3/uL (150-450); RED BLOOD COUNT 4.78 10^6/uL (4.30-6.10); WHITE BLOOD COUNT 6.7 10^3/uL (4.0-10.0)
[2023-07-10 15:11] LABS: LIPASE 20 U/L (12-53)
[2023-07-10 15:14] LABS: ALBUMIN 3.5 G/DL (3.2-5.2); ALKALINE PHOSPHATASE 76 U/L (46-116); ALT/SGPT 26 U/L (7.0-40); AST/SGOT 28 U/L (<34); BILIRUBIN,DIRECT 0.7 MG/DL (<0.4); BILIRUBIN,TOTAL 2.3 MG/DL (0.3-1.2); BLOOD UREA NITROGEN 13 MG/DL (9-23); CARBON DIOXIDE LEVEL 29 MMOL/L (20-31); CHLORIDE LEVEL 104 MMOL/L (98-107); CREATININE FOR GFR 0.93 MG/DL (0.70-1.30); GLOMERULAR FILTRATION RATE > 60.0 (>49); GLUCOSE, FASTING 106 MG/DL (74-106); POTASSIUM SERUM 4.5 MMOL/L (3.5-5.1); SODIUM LEVEL 138 MMOL/L (136-145); TOTAL PROTEIN 6.9 G/DL (5.7-8.2)
[2023-07-10] MEDS: GASTROGRAFIN SOLUTION 30ML PO SCH (16:22)
[2023-07-10] MEDS ORDERED: ISOVUE-370 76% 100ML VIAL As Ordered ONE (17:23)
[2023-07-10] MEDS ORDERED: LEVO1TAB40 PO (19:26)
[2023-07-10 20:22] VITALS: BP 171/82; TEMP 99.2; O2SAT 96
== END 2023-07-10 20:26 | disposition home or self-care (01) ==
LOC: M ED 13:30
DX: R11.2 Nausea with vomiting, unspecified (principal); R19.7 Diarrhea, unspecified; N39.0 Urinary tract infection, site not specified; K76.9 Liver disease, unspecified; Z79.899 Other long term (current) drug therapy
CPT/HCPCS: 74177; 80048; 80076; 81001; 83690; 85025; 87086; 96360; 96361; 99284; Q9963; Q9967

== ENCOUNTER → 2023-11-15 | Outpatient (CLI) | payer OTHER ==
[~2023-11-15] MED LIST changes: +LEVO1TAB40 PO
[2023-11-15 08:22] LABS: HEMATOCRIT 43.2 % (42.0-52.0); HEMOGLOBIN 14.5 g/dl (13.5-17.5); MEAN CORPUSCULAR HEMOGLOBIN 32.1 pg (27.0-33.0); MEAN CORPUSCULAR HGB CONC 33.6 g/dl (32.0-36.5); MEAN CORPUSCULAR VOLUME 95.6 fl (80.0-96.0); PLATELET COUNT, AUTOMATED 218 10^3/uL (150-450); RED BLOOD COUNT 4.52 10^6/uL (4.30-6.10); WHITE BLOOD COUNT 6.7 10^3/uL (4.0-10.0)
[2023-11-15 08:42] LABS: HEMOGLOBIN A1c 5.3 % (4.0-6.0)
[2023-11-15 08:50] LABS: ALBUMIN 3.6 G/DL (3.2-5.2); ALKALINE PHOSPHATASE 52 U/L (46-116); ALT/SGPT 11 U/L (7.0-40); AST/SGOT 11 U/L (<34); BILIRUBIN,TOTAL 1.5 MG/DL (0.3-1.2); BLOOD UREA NITROGEN 13 MG/DL (9-23); CALCIUM LEVEL 9.1 MG/DL (8.3-10.6); CARBON DIOXIDE LEVEL 29 MMOL/L (20-31); CHLORIDE LEVEL 109 MMOL/L (98-107); CHOLESTEROL LEVEL 165 MG/DL (<200); CHOLESTEROL RISK RATIO 3.65 (<5); CREATININE FOR GFR 0.91 MG/DL (0.70-1.30); GLOMERULAR FILTRATION RATE > 60.0 (>49); GLUCOSE, FASTING 92 MG/DL (74-106); HDL CHOLESTEROL 45.2 MG/DL (>40); NON-HDL-C 119.8 MG/DL; POTASSIUM SERUM 4.8 MMOL/L (3.5-5.1); PROSTATIC SPECIFIC AG MONITOR 0.06 NG/ML (< 4.00); SODIUM LEVEL 137 MMOL/L (136-145); TOTAL PROTEIN 6.5 G/DL (5.7-8.2); TRIGLYCERIDES LEVEL 129 MG/DL (<150)
[2023-11-15 08:52] LABS: TESTOSTERONE 492 NG/DL (241-827)
== END ==
LOC: M LAB 07:27
PROVIDERS: ATTEND Family Medicine
DX: R53.83 Other fatigue (principal); E03.9 Hypothyroidism, unspecified; I10 Essential (primary) hypertension

== ENCOUNTER → 2024-02-15 | Outpatient (CLI) | payer OTHER | LOC: M LAB 08:17 | PROVIDERS: ATTEND Physician Assistant | DX: Z12.5 Encounter for screening for malignant neoplasm of prostate (principal) ==

== ENCOUNTER → 2024-04-27 | Outpatient (CLI) | payer OTHER ==
[2024-04-27 12:01] LABS: HEMATOCRIT 44.3 % (42.0-52.0); HEMOGLOBIN 14.8 g/dl (13.5-17.5); MEAN CORPUSCULAR HEMOGLOBIN 32.1 pg (27.0-33.0); MEAN CORPUSCULAR HGB CONC 33.4 g/dl (32.0-36.5); MEAN CORPUSCULAR VOLUME 96.1 fl (80.0-96.0); PLATELET COUNT, AUTOMATED 219 10^3/uL (150-450); RED BLOOD COUNT 4.61 10^6/uL (4.30-6.10); WHITE BLOOD COUNT 7.3 10^3/uL (4.0-10.0)
[2024-04-27 12:10] LABS: ALBUMIN 3.7 G/DL (3.2-5.2); ALKALINE PHOSPHATASE 60 U/L (40-129); ALT/SGPT 14 U/L (7.0-40); AST/SGOT 15 U/L (<34); BILIRUBIN,TOTAL 1.1 MG/DL (0.3-1.2); BLOOD UREA NITROGEN 18 MG/DL (9-23); CALCIUM LEVEL 9.2 MG/DL (8.3-10.6); CARBON DIOXIDE LEVEL 28 MMOL/L (20-31); CHLORIDE LEVEL 105 MMOL/L (98-107); CHOLESTEROL LEVEL 171 MG/DL (<200); CHOLESTEROL RISK RATIO 3.94 (<5); CREATININE FOR GFR 0.84 MG/DL (0.70-1.30); GLOMERULAR FILTRATION RATE > 60.0 (>49); GLUCOSE, FASTING 78 MG/DL (74-106); HDL CHOLESTEROL 43.3 MG/DL (>40); LDL CHOLESTEROL 107.3 MG/DL (<100); NON-HDL-C 127.7 MG/DL; POTASSIUM SERUM 5.3 MMOL/L (3.5-5.1); SODIUM LEVEL 144 MMOL/L (136-145); TRIGLYCERIDES LEVEL 102 MG/DL (<150)
[2024-04-27 12:12] LABS: THYROID STIMULATING HORMONE 2.513 uIU/ML (0.55-4.78); TOTAL 25(OH) VITAMIN D 21.6 NG/ML (20.0-100.0)
[2024-04-27 12:57] LABS: HEMOGLOBIN A1c 5.3 % (4.0-6.0)
== END ==
LOC: M RAD 08:31
PROVIDERS: ATTEND Family Medicine
DX: J44.9 Chronic obstructive pulmonary disease, unspecified (principal); I10 Essential (primary) hypertension; R53.83 Other fatigue

== ENCOUNTER 2024-12-15 07:56 | Emergency (ER) | payer MEDICAID, MEDICARE, OTHER ==
[~2024-12-15] VITALS: Ht 167.6 cm; Wt 81.1 kg
[2024-12-15] MEDS ORDERED: BACTDSTA (08:06)
[2024-12-15 10:03] LABS: BASO # 0.0 10^3/uL (0.0-0.2); BASO % 0.7 % (0.0-1.0); EOS # 0.1 10^3/uL (0.0-0.5); EOS % 1.2 % (0.0-3.0); LYMPH # 0.7 10^3/uL (1.5-5.0); LYMPH % 12.1 % (24.0-44.0); MONO # 0.6 10^3/uL (0.0-0.8); MONO % 10.0 % (2.0-8.0); NEUTROPHILS # 4.6 10^3/uL (1.5-8.5); NEUTROPHILS % 75.7 % (36.0-66.0); PLATELET COUNT, AUTOMATED 227 10^3/uL (150-450)
[2024-12-15 10:11] LABS: KETONE, URINE MANUAL REFLEX NEGATIVE (NEGATIVE); NITRITE, URINE MANUAL RFX NEGATIVE (NEGATIVE); PROTEIN, URINE MANUAL REFLEX NEGATIVE (NEGATIVE); SP GRAVITY,URINE MANUAL REFLEX 1.015 (1.002-1.035); UROBILINOGEN, UA MANUAL REFLEX NORMAL (NORMAL)
[2024-12-15 10:29] LABS: CALCIUM LEVEL 9.3 MG/DL (8.3-10.6); CARBON DIOXIDE LEVEL 24.0 MMOL/L (20-31); CHLORIDE LEVEL 107.0 MMOL/L (98-107); CREATININE FOR GFR 1.06 MG/DL (0.70-1.30); GLOMERULAR FILTRATION RATE 76.9 (>49); POTASSIUM SERUM 4.8 MMOL/L (3.5-5.1); SODIUM LEVEL 139.0 MMOL/L (136-145)
[2024-12-15 11:04] VITALS: BP 152/82; TEMP 97; O2SAT 97
== END 2024-12-15 11:05 | disposition home or self-care (01) ==
LOC: M ED 07:56
DX: N39.0 Urinary tract infection, site not specified (principal); Z85.51 Personal history of malignant neoplasm of bladder; Z79.2 Long term (current) use of antibiotics; Z79.899 Other long term (current) drug therapy

== ENCOUNTER → 2025-02-02 | Outpatient (CLI) | payer OTHER ==
[~2025-02-02] MED LIST changes: +BACTDSTA
== END ==
LOC: M WUC 10:15
PROVIDERS: ATTEND Physician Assistant Medical
DX: M54.50 Low back pain, unspecified (principal); M47.816 Spondylosis without myelopathy or radiculopathy, lumbar region

== ENCOUNTER → 2025-02-08 | Outpatient (CLI) | payer OTHER | LOC: M LAB 08:14 | PROVIDERS: ATTEND Physician Assistant | DX: Z12.5 Encounter for screening for malignant neoplasm of prostate (principal) | CPT/HCPCS: 36415; G0103 ==